=== PATIENT | female | born 1995 | race Caucasian/White ===

== ENCOUNTER 2017-02-16 12:32 | Emergency (ER) | payer OTHER ==
[2017-02-16 12:40] VITALS: BP 126/90
[2017-02-16] MEDS ORDERED: HYDROcod/ACETAM 5/325 MG TABLET PO STA (12:48)
[2017-02-16] MEDS ORDERED: SULFAMETH/TRIMETH DS 800/160 MG TABLET PO STA (12:48)
--- NOTE | 2017-02-16 12:51 | ED Physician Documentation ---
History of Present Illness - Stated complaint Stated Complaint: WOUND OPENED - Chief complaint Chief Complaint: Wound - History obtained from History obtained from: Patient - History of Present Illness Timing: How many days ago (2) Pain level max: 5 Pain level now: 4 Improved by: nothing Worsened by: palpation - Additonal information Additional information: Patient is a 21-year-old female has a history of pilonidal cyst. Has had surgery on this in the past. States that started draining again 2 days ago. No fevers. No vomiting. Not . Not breast-feeding. Not trying to become . Review of Systems Ten Systems: 10 systems reviewed and negative Constitutional: denies: Fever, Chills Ears: denies: Ear pain Nose: denies: Rhinorrhea / runny nose, Congestion Throat: denies: Sore throat Cardiac: denies: Chest pain / pressure Respiratory: denies: Cough GI: denies: Nausea, Vomiting, Diarrhea : denies: Now EGA Skin: denies: Rash Musculoskeletal: denies: Neck pain, Back pain Neurologic: denies: Headache PD PAST MEDICAL HISTORY - Past Medical History Past Medical History: No - Past Surgical History Past Surgical History: No - Present Medications Home Medications: Ambulatory Orders Medication Instructions Recorded Confirmed Hydrocodone/Acetaminophen 1 - 2 each PO Q6H PRN #10 tablet 02/16/17 [Hydrocodon-Acetaminophen 5-325] Sulfamethox/Trimeth 800/160 1 each PO BID #14 tablet 02/16/17 [Bactrim Ds 800/160] - Allergies Allergies/Adverse Reactions: Allergies Allergy/AdvReac Type Severity Reaction Status Date / Time No Known Drug Allergies Allergy Verified 07/20/15 21:34 - Social History Does the pt smoke?: No Smoking Status: Never smoker - Immunizations Immunizations are current?: Yes PD ED PE NORMAL - Vitals Vital signs reviewed: Yes - General General: Alert and oriented X 3, No acute distress, Well developed/nourished - HEENT HEENT: PERRL, Moist mucous membranes - Neck Neck: Supple, no meningeal sign - Cardiac Cardiac: RRR, Strong equal pulses - Respiratory Respiratory: No respiratory distress, Clear bilaterally - Back Back: Other (small 0.5x0.5cm indurated area to gluteal cleft. ) - Derm Derm: Warm and dry - Neuro Neuro: Alert and oriented X 3 - Psych Psych: Normal mood, Normal affect Results - Vitals Vitals: Vital Signs - 24 hr 02/16/17 12:38 Temperature 36.1 C L Heart Rate 66 Respiratory 17 Rate Blood Pressure 126/90 H O2 Saturation 100 Oxygen O2 Source Room air PD MEDICAL DECISION MAKING - ED course Complexity details: considered differential, d/w patient ED course: Patient is a 21-year-old female who presents to the emergency department with what appears to be a early pilonidal cyst. No evidence of drainable abscess at this time. No cellulitis. Will place her on a small amount of pain medication antibiotics for home. We will have her follow-up with her doctor for further evaluation and care. Patient counseled regarding signs and symptoms for which I believe and urgent re-evaluation would be necessary. Patient with good understanding of and agreement to plan and is comfortable going home at this time This document was made in part using voice recognition software. While efforts are made to proofread this document, sound alike and grammatical errors may occur. Departure - Departure Disposition: 01 Home, Self Care Clinical Impression: Pilonidal cyst Condition: Good Instructions: ED Cyst Pilonidal Infec Abx Only Follow-Up: Mathieu Yi MD [Provider Admit Priv/Credential] - ROBERT WALKER MD [Provider Admit Priv/Credential] - your,doctor in 1 week [Other] Prescriptions: Hydrocodone/Acetaminophen [Hydrocodon-Acetaminophen 5-325] 1 - 2 each PO Q6H PRN #10 tablet PRN Reason: pain Sulfamethox/Trimeth 800/160 [Bactrim Ds 800/160] 1 each PO BID #14 tablet Comments: Take all antibiotics until gone. Return if you worsen. Make sure to follow-up with surgery for further evaluation. Do not drink alcohol or drive while on narcotic pain medicine. Note that many narcotic pain relievers also contain tylenol/acetaminophen. Please ensure that your total dose of acetaminophen from all sources does not exceed 3 grams (3000mg) per day. You may constipated on this medication, take a stool softener such as "Colace" twice a day while you are on it. Also recommend a segh-qdg-gobxgte laxative such as senna or MiraLAX any day that you do not have a bowel movement. If you received narcotic pain medication in the emergency department, do not drive or operate machinery for the next 24 hours. Discharge Date/Time: 02/16/17 12:56
[2017-02-16] MEDS ORDERED: SULFAMETH/TRIMETH DS 800/160 MG TABLET PO ONE (12:56)
[2017-02-16] MEDS ORDERED: HYDROcod/ACETAM 5/325 MG TABLET ONE (12:56)
== END 2017-02-16 12:56 | disposition home or self-care (01) ==
LOC: ED 12:32
DX: L05.91 Pilonidal cyst without abscess (principal)
CPT/HCPCS: 99283; A9270

== ENCOUNTER 2017-03-27 08:48 | Day surgery (SDC) | payer OTHER ==
[~2017-03-27 08:48] MED LIST: ceFAZolin 2 GM/50 ML 2 GM/50 ML BAG IV ONE
[2017-03-27] MEDS ORDERED: LACTATED RINGERS 1,000 ML IV ONE (10:58)
[2017-03-27 11:43] LABS: HCG UR QUAL NEGATIVE
[2017-03-27] MEDS ORDERED: LIDOCAINE MPF 1%-EPI 1:200000 30 ML VIAL SUBQ ONE ×2 (12:10)
[2017-03-27] MEDS ORDERED: GLYCOPYRROLATE 1 MG/5 ML VIAL IVP ONE (13:00)
[2017-03-27] MEDS ORDERED: PROPOFOL 200 MG/20 ML VIAL IVP ONE (13:00)
[2017-03-27] MEDS ORDERED: fentaNYL 100 MCG/2 ML VIAL IVP ONE (13:00)
[2017-03-27] MEDS ORDERED: NEOSTIGMINE 1 MG/1 ML 10 ML MDV IVP ONE (13:00)
[2017-03-27] MEDS ORDERED: ROCURONIUM 50 MG/5 ML VIAL IVP ONE (13:00)
[2017-03-27 13:42] VITALS: BP 111/68
[2017-03-27] MEDS ORDERED: HYDROcod/ACETAM 5/325 MG TABLET ONE (13:43)
[2017-03-27] MEDS ORDERED: ONDANSETRON 4 MG/2 ML VIAL ONE (13:55)
--- NOTE | 2017-03-27 19:06 | PROCEDURE REPORT ---
DATE OF SERVICE: 03/27/2017 Physician: Jesse Noel MD PREOPERATIVE DIAGNOSIS: Recurrent pilonidal cyst. POSTOPERATIVE DIAGNOSIS: Recurrent pilonidal cyst. PROCEDURE PERFORMED: Excision of recurrent pilonidal cyst. OPERATING SURGEON: Jin Noel MD. ANESTHESIA: General. INDICATIONS FOR PROCEDURE: The patient is a 21-year-old female who previously had a pilonidal cyst in what appears to be an incision and drainage procedure. The cyst then resolved several years ago. She now presents with increasing pain and swelling in the same vicinity of the previous pilonidal cyst. On examination this cyst appears to be about an inch cranial to the previous area of pilonidal cyst disease and appears to be localized. She does not have any pits noted in the midline. FINDINGS AT PROCEDURE: An area of recurrent pilonidal cyst was excised totally , not leaving any obvious residual pilonidal cyst tissue behind. The wound was closed primarily. PROCEDURE: After informed consent was obtained, the patient was taken to the operating room and placed in supine position. General endotracheal anesthesia was administered. The patient was then placed in a prone position. The patient's buttocks were then prepped and draped in the usual sterile fashion. The skin around the pilonidal cyst disease was then injected with 1% lidocaine. An elliptical incision was then made in the skin to encompass this entire lesion. Next, the subcutaneous tissue was then divided, removing the cyst in total. There was no obvious disease left behind. The wound was irrigated, and hemostasis was obtained using electrocautery. Subcutaneous tissue was closed using interrupted 4-0 Vicryl suture. The skin was closed using 4-0 Prolene subcuticular stitch. Steri-Strips were then applied along with a dry dressing. The patient was then awakened, extubated, and taken to the operating room in stable condition. ESTIMATED BLOOD LOSS: Minimal. COMPLICATIONS: None. CONDITION OF THE PATIENT AFTER THE PROCEDURE: Stable. SPECIMENS: Pilonidal cyst disease. DRAINS, PACKS: None. CLASSIFICATION OF WOUND: Clean/contaminated. TD: 03/27/2017 18:39 MTDD
== END 2017-03-27 08:49 | disposition home or self-care (01) ==
LOC: SDS 08:48
PROVIDERS: ATTEND Surgery
PROC: 0JB90ZZ Excision of Buttock Subcutaneous Tissue and Fascia, Open Approach (ICD-10-PCS; principal; 2017-03-27 10:00)
DX: L05.91 Pilonidal cyst without abscess (principal)
CPT/HCPCS: 11770; 81025; A9270; J0690; J7120

== ENCOUNTER 2017-06-03 09:30 | Emergency (ER) | payer OTHER ==
[2017-06-03 10:51] VITALS: BP 124/79
--- NOTE | 2017-06-03 11:05 | ED Physician Documentation ---
PD HPI SKIN - Stated complaint Stated Complaint: BUMPS BILAT LEG - Chief complaint Chief Complaint: Wound - History obtained from History obtained from: Patient - History of Present Illness Timing - onset: Other (Itchy painful bumps on both legs, she thought they were related to shaving so she stopped shaving but they persist. No fevers, no nasal lesions. No possibility of .) Review of Systems Constitutional: denies: Fever, Chills GI: denies: Abdominal Pain : denies: Now EGA Skin: reports: Lesions. denies: Rash PD PAST MEDICAL HISTORY - Past Medical History Cardiovascular: None Respiratory: None Endocrine/Autoimmune: None GI: None : None HEENT: Chronic vision loss Psych: None Musculoskeletal: None Derm: None - Past Surgical History Past Surgical History: No - Present Medications Home Medications: Ambulatory Orders Medication Instructions Recorded Confirmed Norelgestromin/Ethin.estradiol 1 each TD ONCE 03/26/17 03/26/17 [Xulane Patch] Cephalexin [Keflex] 500 mg PO QID #40 capsule 06/03/17 - Allergies Allergies/Adverse Reactions: Allergies Allergy/AdvReac Type Severity Reaction Status Date / Time No Known Drug Allergies Allergy Verified 06/03/17 10:51 - Social History Does the pt smoke?: No Smoking Status: Never smoker Does the pt drink ETOH?: No Does the pt have substance abuse?: No - Immunizations Immunizations are current?: Yes - POLST Patient has POLST: No PD ED PE NORMAL - Vitals Vital signs reviewed: Yes - General General: Alert and oriented X 3, No acute distress - Derm Derm: Other (She has folliculitis on both shins, there was a single pimple type lesion with surrounding cellulitis that was expressed during exam from the left arvizu and sent for culture.) - Neuro Neuro: Alert and oriented X 3, Normal speech Results - Vitals Vitals: Vital Signs - 24 hr 06/03/17 10:48 Temperature 37 C Heart Rate 86 Respiratory 14 Rate Blood Pressure 124/79 O2 Saturation 98 Oxygen O2 Source Room air Departure - Departure Disposition: 01 Home, Self Care Clinical Impression: Folliculitis Condition: Good Record reviewed to determine appropriate education?: Yes Instructions: ED Folliculitis Prescriptions: Cephalexin [Keflex] 500 mg PO QID #40 capsule Comments: We are performing a wound culture, the results should be done in 48-72 hours. If antibiotic change is necessary we will call you. Return if worse in the meantime, especially if you develop increased pain, fevers, cannot keep down the medication. Otherwise follow-up with your physician in approximately 2-3 days.
== END 2017-06-03 11:15 | disposition home or self-care (01) ==
LOC: ED 09:30
DX: L73.9 Follicular disorder, unspecified (principal)
CPT/HCPCS: 87070; 87205; 99283

== ENCOUNTER 2022-12-07 12:45 | Emergency (ER) | payer BC, OTHER ==
[2022-12-07 12:57] VITALS: BP 140/90; O2SAT 98
--- NOTE | 2022-12-07 13:16 | ED Physician Documentation ---
PD HPI FEMALE - Stated complaint Stated Complaint: FEMALE - Chief complaint Chief Complaint: Abd Pain - History obtained from History obtained from: Patient - Additional information Additional information: with PCOS. Unsure of her last menses but may be early October. For the last 2 days has had heavy bleeding, changing her pad and tampon every hour and a half. It was preceded by severe cramps which are gone now. There is a possibility of , has not taken a test, but she is trying to conceive. PD PAST MEDICAL HISTORY - Past Medical History Cardiovascular: None Respiratory: None Endocrine/Autoimmune: None GI: None : None HEENT: Chronic vision loss Psych: None Musculoskeletal: None Derm: None - Past Surgical History Past Surgical History: No - Present Medications Home Medications: Ambulatory Orders Medication Instructions Recorded Confirmed Norelgestromin/Ethin.estradiol 1 each TD ONCE 03/26/17 03/26/17 [Xulane Patch] cephALEXin [Keflex] 500 mg PO QID #40 capsule 06/03/17 Norgestimate-Ethinyl Estradiol 1 each PO TID #1 pkt 12/07/22 [Ortho Tri-Cyclen 28 Tablet] - Allergies Allergies/Adverse Reactions: Allergies Allergy/AdvReac Type Severity Reaction Status Date / Time No Known Drug Allergies Allergy Verified 12/07/22 12:53 - Social History Does the pt smoke?: No Smoking Status: Never smoker Does the pt drink ETOH?: No Does the pt have substance abuse?: No - Immunizations Immunizations are current?: Yes - POLST Patient has POLST: No PD ED PE NORMAL - Vitals Vital signs reviewed: Yes - General General: Alert and oriented X 3, No acute distress - Abdomen Abdomen: Soft, Non tender - Neuro Neuro: Alert and oriented X 3, Normal speech Results - Vitals Vitals: Vital Signs - 24 hr 12/07/22 12:53 Temperature 36.5 C Heart Rate 68 Respiratory 16 Rate Blood Pressure 140/90 H O2 Saturation 98 Oxygen O2 Source Room air - Labs Labs: Laboratory Tests 12/07/22 12/07/22 12/07/22 13:20 13:20 13:20 Hgb 13.8 Hct 42.4 Beta HCG, Quant < 0.6 Blood Type AB POSITIVE PD Medical Decision Making - ED course ED course: 26-year-old woman presents with heavy vaginal bleeding in the setting of possible . Differential diagnosis would hinge on status, but of course would include ectopic, miscarriage, or simple menorrhagia. Work-up in the emergency department with H&H was normal and a negative serum test. We will start control for menorrhagia. Departure - Departure Disposition: 01 Home, Self Care Clinical Impression: Menorrhagia Qualifiers: Menorrhagia type: with irregular cycle Qualified Code(s): N92.1 - Excessive and frequent menstruation with irregular cycle Condition: Good Record reviewed to determine appropriate education?: Yes Instructions: ED Bleeding Menstrual Heavy Follow-Up: [facility] [Provider Group] Prescriptions: Norgestimate-Ethinyl Estradiol [Ortho Tri-Cyclen 28 Tablet] 1 each PO TID #1 pkt Comments: You are not and your blood counts are normal. I am prescribing a few days worth of control at high dose which should stop the bleeding. Reasonable to follow-up with our [facility] clinic, the numbers on this form and return if worse. Forms: PCP List Discharge Date/Time: 12/07/22 14:11
[2022-12-07 13:27] LABS: HCT - HEMATOCRIT 42.4 % (37.0-47.0); HGB - HEMOGLOBIN 13.8 g/dL (12.0-16.0)
== END 2022-12-07 14:11 | disposition home or self-care (01) ==
LOC: ED 12:45
DX: N92.1 Excessive and frequent menstruation with irregular cycle (principal)
CPT/HCPCS: 36415; 84702; 85014; 85018; 86900; 86901; 99283